=== PATIENT | male | born 1950 | race Caucasian/White ===

== ENCOUNTER 2024-09-21 05:30 | Day surgery (SDC) | payer MEDICARE, BC, SELFPAY ==
--- NOTE | 2024-09-20 06:34 | EKG_ITS ---
[facility] Test Date: 2024-09-20 Pat Name: CATHIE AGGARWAL Department: Room: - Gender: Male Air Sampling And Monitoring: ARLENE : 1950 Requested By: Yonathan Alvarado Order Number: [id number] Reading MD: Yonathan Alvarado Measurements Intervals [place] Rate: 85 P: -4 SC: 138 QRS: -35 QRSD: 103 T: 41 QT: 358 QTc: 427 Interpretive Statements SINUS RHYTHM MARKED LEFT AXIS DEVIATION [QRS AXIS < -30] LOW QRS VOLTAGE IN PRECORDIAL LEADS [QRS DEFLECTION < 1.0 mV IN CHEST LEADS] No previous ECG available for comparison /[id number]/[email or web address]/[id number]
[2024-09-20 08:57] VITALS: BMI 31.7
[2024-09-20 09:56] LABS: Alanine Aminotransferase 18 U/L (10-49); Albumin, Serum 4.6 gm/dL (3.4-4.8); Albumin/Globulin Ratio 1.9 (1.2-2.2); Alkaline Phosphatase 81 U/L (46-116); Anion Gap 5 (7-16); Aspartate Amino Transferase 13 U/L (0-34); BUN/Creatinine Ratio 23 Ratio (12-20); Bilirubin,Total 0.6 mg/dL (0.3-1.2); Blood Urea Nitrogen 23 mg/dL (9-23); Chloride 104 mMol/L (98-107); Estimated Creatinine Clearance 86.5 mL/min (>60); Globulin 2.4 gm/dL (2.3-3.5); Glucose 102 mg/dL (74-106); Osmolality,Calculated 284 (275-295); Potassium 3.8 mMol/L (3.4-5.1); Sodium 141 mMol/L (136-145); eGFR > 60 See Note
[2024-09-21] VITALS (9 sets, daily range): BP systolic 126–146; BP diastolic 71–94; PULSE 75–98; RESP 12–20; TEMP 36.2–36.6; O2SAT 94–100; BMI 31.4
[2024-09-21] MEDS: DEXAMETHASONE SOD PHOS INJ 10 MG/ML VIAL 8 MG IV (07:11)
[2024-09-21] MEDS: ALBUTEROL RT 2.5 MG/3 ML NEBU INH (07:12)
[2024-09-21] MEDS: MIDAZOLAM INJ 1 MG/ML VIAL 2 ML 2 MG IV (07:18)
--- NOTE | 2024-09-21 09:58 | SUR.PHASEI ---
pt received from OR in recovery bay 5. pt asleep but responds to voice, breathing unlabored on oxymask 8l. v/s stable. pt dressing to left ear cdi. report received from Cornel Camarena and Dr. Dillon.
--- NOTE | 2024-09-21 09:58 | XR_ITS ---
Examination: Skull series 2 views TECHNIQUE: Magalis sagittal planes skull series 2 views Exam date and time: September 21, 2024 1029 hours INDICATIONS: Postop cochlear implant lead placement FINDINGS: Cochlear implant lead satisfactory position Cranial vault intact IMPRESSION: Left cochlear implant lead satisfactory position
--- NOTE | 2024-09-21 10:06 | PD.SUROPNT ---
Date of Procedure 09/21/24 Pre Op Diagnosis Profound sensorineural hearing loss Post Op Diagnosis Profound sensorineural hearing loss Procedure Insertion of left cochlear implant with mastoidectomy and facial nerve monitoring Findings Normal mastoid and middle ear anatomy Procedure Description Indications this is a 74-year-old male who was hearing loss is progressed to profound. Hearing aids are no longer of benefit to him. [place] bio testing confirmed this with a score of 0%. Treatment options were discussed as well as surgical risks including infection bleeding facial nerve paralysis decrease in taste dizziness and tinnitus. Patient understood this and wished to proceed. Patient was marked and shaved in the preoperative setting and then transferred the operative suite where he was anesthetized intubated. The outline of the incision was marked and methylene blue was injected at the posterior margin of the external processor. Facial nerve monitoring electrodes were placed in usual fashion for the left ear. Patient was then sterilely prepped and draped and timeout performed. Standard postauricular incision was then performed and an anterior posterior flap developed as well as a palva flap. The external auditory meatus was identified. A pocket was created posteriorly for the internal biomedical engineering technician and the pocket anteriorly and superiorly for the ground electrode. Canal wall up mastoidectomy was performed with a #6 cutting bur and then progressing down to a #4. The incus as well as the horizontal canal were identified as well as the course with the facial nerve. The nerve monitor probe was used but were unable to get the nerve to stimulated any location where it was tested even though I knew that the nerve was safe. The patient had been paralyzed during the intubation process and I feel that the paralytic had not worn off yet. Chorda facial angle was then opened up with a #2 and then a 1.5 duke bur. The stapedial tendon was identified and dissection was carried inferiorly keeping the facial nerve safe throughout the process and irrigating during the entire drilling process. Round window niche was identified. It was drilled back with a 1.5 mm duke bur. This exposed the round window. The window was not opened at this point. A channel was then drilled that a well for the internal biomedical engineering technician. The surgical site was irrigated with copious saline solution and suction. The implant was then brought into the field and placed into the well. Under microscopic visualization the electrode was inserted to full insertion with the jeweler's forceps. Tissue plug that been harvested previously was placed around the insertion site. The ground electrode was placed in the pocket and had been created for it. The palva flap was closed with interrupted 4-0 Vicryl suture. Neuro metric testing was performed and all electrodes were shown to be functioning in all 7 electrodes that were tested had a good response on neuro metric testing. The closure of the incision was then completed. Facial nerve monitoring electrodes were removed the patient was awakened and taken to the recovery room in stable condition Anesthesia GETA Implants Cochlear implant model CI 622 serial #[id number] Pathology / specimen None Estimated Blood Loss 5 Surgeon Yonathan Redman DO Surgical Staff Operation Date: 09/21/24 07:30 Case Staff Anesthesiologist: Flynn Dillon
[2024-09-21] MEDS: fentaNYL CIT INJ 50 mCg/ML AMP 2ML 25 MCG IV (10:18)
--- NOTE | 2024-09-21 11:00 | SUR.PHASEII ---
pt able to tolerate oral fluids without difficulty swallowing or nausea/vomiting.
--- NOTE | 2024-09-21 11:15 | SUR.PHASEII ---
pt awake and alert, breathing unlabored on room air. v/s stable. pt dressing to left ear cdi. pt able to ambulate to wheelchair with steady gait. d/c instructions given with brother Yonathan in room, all questions answered. pt d/c via wheelchair with all belongings.
== END 2024-09-21 11:15 | disposition home or self-care (01) ==
PROVIDERS: PCP Family Medicine; Referring Provider Otolaryngology; Visit Provider Otolaryngology
PROC: (CPT 69930; principal; 2024-09-21 07:30)
DX: H90.3 Sensorineural hearing loss, bilateral (principal); J34.2 Deviated nasal septum; Z01.810 Encounter for preprocedural cardiovascular examination; Z85.828 Personal history of other malignant neoplasm of skin; F17.210 Nicotine dependence, cigarettes, uncomplicated
CPT/HCPCS: 69930; 36415; 70250; 80053; 93005; A4217; A4649; J0131; J0171; J0461; J0690; J1100; J2250; J2371; J2405; J2704; J3010; J3473; J3490; J7040; L8614; L8690; Q9968; A9270